=== PATIENT | female | born 1935 | race Caucasian/White ===

== ENCOUNTER 2020-04-08 17:46 | Inpatient (IN) | payer MEDICARE ==
[~2020-04-08] VITALS: Ht 170.2 cm; Wt 88.5 kg
--- NOTE | ~2020-04-08 | EMS ---
[place] [address] EMS Patient Care Report Name: ESTEE WEEMS I Room: [address] IN [facility]#: [id number] Admission: 04/08/20 Attend Phys: Pepper Nino MD Discharge: 04/10/20 Date of : 39 Report #: [id number] THIS REPORT FOR: //name// Report Transmitted: 04/13/2020 14:46 EMS Care Summary [facility]ident [id number] @ 04/08/2020 17:06 Incident Location [address] [place] [address] Patient ESTEE WEEMS Female, 84 Years 1935 Patient Address [address] [place] [address] Patient History Chronic Obstructive Pulmonary Disease (COPD),Breast Cancer,Hernia (Abdominal),Chronic Kidney Disease, Patient Allergies Penicillin allergy,Bactrim,Lisinopril,Cipro, Patient Medications Fluticasone, Aspirin, Proair, Atorvastatin, Omeprazole, Gabapentin, Diltiazem, Potassium, Chief Complaint stroke/cva Disposition Transported Lights/Reed Dispatch Reason Stroke/CVA Transported To [facility] Narrative Dispatch: Med 1 was dispatched to a home for a female with a possible CVA. Med 1 arrived on scene without incident. [address] [address] EMS Patient Care Report Name: ESTEE WEEMS I Room: [address] IN [facility]#: [id number] Admission: 04/08/20 Attend Phys: Pepper Nino MD Discharge: 04/10/20 Date of : 39 Report #: [id number] Chief Complaint: Med 1 entered the home and observed a woman sitting in a chair in the living room, smoking a cigarette. There were two other woman on scene, claiming to be the patient's daughters. Her daughter stated, " She's not acting normal for her. Something is wrong." History of present illness: Patient stated that she was sitting in the chair, watching T.V., when she began to have vision problems with her left eye. She stated that this happened around 1630 hours. Upon EMS arrival, patient stated that she was no longer experiencing the vision problems, but she just didn't feel right. Initial Assessment: Initial [place] Stroke Scale was completed on scene, while the patient was sitting in her recliner. She was able to answer all questions appropriately. Patient had equal side boss, no facial droop, and clear speech. Vitals were obtained. Skin was pink, warm and dry. Equal chest rise and fall. Patient ambulated to the cot with assistance. She appeared to lean more to her right and not lift her right foot up all the way as she walked. Secondary Assessment: Patient began to have right sided facial droop, as well as right sided weakness. She was unable to lift her right arm. She did have sensation in her right limbs. She was still able to answer all questions appropriately. Her speech did start sounding slurred. Reason for transport: Patient appeared to be having a stroke and needed to be transported emergency to the most appropriate stroke center. Treatments: Once in the ambulance, repeat vital signs were obtained and 12-lead were obtained. Two IV's were established as noted in flowchart tab. Patient was continuously monitored en route. Summary: Patient initially stated that she did not want to go. She got up to walk, and required assistance, which is not normal. Therefore, she stated that she would accept treatment and transport to the hospital. She was transferred to the [facility], covered with a blanket, and all seat belts were applied. Transport began. During transport, the patient's stroke symptoms seemed to be worsening; and her condition deteriorating. Stroke activation was made at 1740 to [facility] via radio. No other changes in patient condition were noted. Upon arrival to the hospital, the patient was unloaded, taken to the CT bed and transferred. Report was given to nursing staff, signatures were obtained, and patient care was transferred. [facility] returned to service. Initial Vitals @17:42P: 59,R: 20,GCS: 15,SpO2: 97, @17:47P: 62,R: 16,GCS: 15,SpO2: 96, [place] [address] EMS Patient Care Report Name: DANKESTEE I Room: [address] IN M.R.#: [id number] Admission: 04/08/20 Attend Phys: Pepper Nino MD Discharge: 04/10/20 Date of : 39 Report #: [id number] @17:29P: 73,R: 16,GCS: 15,SpO2: 97, @17:45P: 59,R: 18,BP: 159/71,GCS: 15,SpO2: 97,Revised Trauma: 12, @17:34P: 63,R: 20,BP: 170/122,GCS: 15,SpO2: 98,Revised Trauma: 12, @17:57P: 58,R: 18,BP: 158/74,GCS: 15,SpO2: 97,Revised Trauma: 12, @17:20P: 75,R: 16,BP: 160/110,GCS: 15,Glucose: 134,SpO2: 97,Revised Trauma: 12, Assessments @17:17MENTAL:Person Oriented,Time Oriented,Place Oriented,Event Oriented,SKIN:HEENT:Eyes: Left Pupil: 4-mm,Eyes: Right Pupil: 4-mm,Head/Face: No Abnormalities,Neck/Airway: No Abnormalities,LUNG SOUNDS:ABDOMEN:PELVIS//GI:No Abnormalities,EXTREMITIES:Left Arm: No Abnormalities,Right Arm: No Abnormalities,Left Leg: No Abnormalities,Right Leg: No Abnormalities,PULSE:Radial: 2+ Normal,NEURO:Abnormal Gait,Weakness Right-Sided,@18:30MENTAL:Person Oriented,Time Oriented,Place Oriented,Event Oriented,SKIN:HEENT:Eyes: Right Pupil: 5-mm,Head/Face: Facial Droop,Eyes: Left Pupil: 5-mm,Neck/Airway: No Abnormalities,LUNG SOUNDS:ABDOMEN:PELVIS//GI:No Abnormalities,EXTREMITIES:Right Arm: Weakness,Right Leg: Weakness,Left Arm: No Abnormalities,Left Leg: No Abnormalities,PULSE:NEURO:Slurred Speech,Abnormal Gait,Facial Droop,Weakness Right-Sided, Impression Stroke Procedures @17:19ALS AssessmentResponse: UnchangedSucceeded@17:40Stroke AlertResponse: Unchanged@17:35Saline Lock 10cc (18 ga) Site: Antecubital-RightResponse: UnchangedSucceeded@17:48Saline Lock 10cc (20 ga) Site: Antecubital-LeftResponse: UnchangedSucceeded@17:3012-Lead ECGResponse: UnchangedSucceeded@17:3412-Lead ECGResponse: UnchangedSucceeded@17:5712-Lead ECGResponse: UnchangedSucceeded@17:2912-Lead ECGResponse: UnchangedSucceeded Timeline 17:06,Call Received 17:06,Dispatched 17:08,En Route 17:09,On Scene 17:10,At Patient 17:19,ALS Assessment,Response: UnchangedSucceeded, 17:20,BP: 160/110 M,PULSE: 75,RR: 16 R,SPO2: 97 Ox,ETCO2: ,B,PAIN: ,GCS: 15, 17:28,Depart Scene 17:29,12-Lead ECG,Response: UnchangedSucceeded, 17:29,BP: / M,PULSE: 73,RR: 16 R,SPO2: 97 Ox,ETCO2: ,BG: ,PAIN: ,GCS: 15, 17:30,12-Lead ECG,Response: UnchangedSucceeded, 17:34,12-Lead ECG,Response: UnchangedSucceeded, 17:34,BP: 170/122 M,PULSE: 63,RR: 20 R,SPO2: 98 Ox,ETCO2: ,BG: ,PAIN: ,GCS: 15, [place] [address] EMS Patient Care Report Name: ESTEE WEEMS I Room: [address]#: [id number] Admission: 04/08/20 Attend Phys: Pepper Nino MD Discharge: 04/10/20 Date of : 39 Report #: [id number] 17:35,Saline Lock 10cc 18 ga Site: Antecubital-Right,Response: UnchangedSucceeded, 17:40,Stroke Alert,Response: Unchanged 17:42,BP: / M,PULSE: 59,RR: 20 R,SPO2: 97 Ox,ETCO2: ,BG: ,PAIN: ,GCS: 15, 17:45,BP: 159/71 M,PULSE: 59,RR: 18 R,SPO2: 97 Ox,ETCO2: ,BG: ,PAIN: ,GCS: 15, 17:47,BP: / M,PULSE: 62,RR: 16 R,SPO2: 96 Ox,ETCO2: ,BG: ,PAIN: ,GCS: 15, 17:48,Saline Lock 10cc 20 ga Site: Antecubital-Left,Response: UnchangedSucceeded, 17:57,12-Lead ECG,Response: UnchangedSucceeded, 17:57,BP: 158/74 M,PULSE: 58,RR: 18 R,SPO2: 97 Ox,ETCO2: ,BG: ,PAIN: ,GCS: 15, 17:59,At Destination 18:42,Call Closed Disclaimer v1.1 Copyright 2020 [employer] This EMS Care Summary contains data elements from the applicable legal record (which may be displayed differently). It is designed to provide pertinent information for the following purposes: continuity of care, clinical quality, and state data reporting. The complete legal record is available to ED staff and administrators of the receiving hospital in [facility] Patient Tracker. All data is provided "as is."
[2020-04-08 18:00] VITALS: BP 170/85
[2020-04-08 18:30] LABS: ABSOLUTE BASOPHILS 0.1 thou/uL (0.0-0.2); ABSOLUTE EOSINOPHILS 0.4 thou/uL (0.0-0.7); ABSOLUTE LYMPHOCYTES 2.1 thou/uL (0.8-5.3); ABSOLUTE MONOCYTES 0.5 thou/uL (0.0-1.2); ABSOLUTE NEUTROPHILS 2.8 thou/uL (1.6-8.1); BASOPHILS 0.9 %; EOSINOPHILS 7.4 %; HEMATOCRIT 41.3 % (37.0-47.0); HEMOGLOBIN 13.8 gm/dL (12.0-15.0); LYMPHOCYTES 36.1 %; MCH 31.6 pg (26.0-34.0); MCHC 33.5 g/dL (28.0-37.0); MCV 94.4 fL (80.0-100.0); NUCLEATED RBCS 0 /100WBC; PLATELET COUNT* 194 thou/uL (150-400); POLYS 47.6 %; RBC 4.38 mil/uL (4.20-5.00); RDW-CV 12.9 % (10.5-14.5)
[2020-04-08] MEDS ORDERED: SINGULAIR 10 MG10 M1 PO (18:34)
[2020-04-08] MEDS ORDERED: DILTIAZEM 24HR240 M1 PO (18:34)
[2020-04-08] MEDS ORDERED: LIPITOR40 MG PO (18:34)
[2020-04-08] MEDS ORDERED: ST. JOSEPH ASPI81 MG PO (18:35)
[2020-04-08] MEDS ORDERED: LIPITOR 40 MG T40 M1 PO (18:35)
[2020-04-08] MEDS ORDERED: VALSARTAN80 MG PO (18:35)
[2020-04-08] MEDS ORDERED: OMEPRAZOLE40 MG PO (18:35)
[2020-04-08] MEDS ORDERED: KLOR-CON M2020 MEQ PO (18:35)
[2020-04-08] MEDS ORDERED: GABAPENTIN100 MG PO (18:35)
[2020-04-08] MEDS ORDERED: ALBUTEROL2.5 MG/0.1 INH (18:36)
[2020-04-08] MEDS ORDERED: COLACE100 MG PO (18:36)
[2020-04-08 18:39] LABS: ALBUMIN 3.5 g/dL (3.4-5.0); CALCIUM 9.1 mg/dL (8.5-10.1); CREATININE 1.1 mg/dL (0.6-1.3); POTASSIUM 4.3 mmol/L (3.5-5.1); TOTAL BILIRUBIN 0.3 mg/dL (<0.1-1.0); TOTAL PROTEIN 6.7 g/dL (6.4-8.2)
[2020-04-08 18:50] LABS: APTT 24.8 Seconds (25.0-31.3); PROTIME 11.1 Seconds (9.20-11.50)
[2020-04-08 19:46] VITALS: BP 144/65
[2020-04-08 21:00] VITALS: BP 135/63
[2020-04-08 23:32] VITALS: BP 155/60
[2020-04-09 04:10] VITALS: BP 143/53
[2020-04-09 04:36] LABS: HEMATOCRIT 39.7 % (37.0-47.0); HEMOGLOBIN 13.4 gm/dL (12.0-15.0); MCH 31.5 pg (26.0-34.0); MCHC 33.6 g/dL (28.0-37.0); MCV 93.6 fL (80.0-100.0); MPV 7.7 fl. (7.2-11.1); RBC 4.25 mil/uL (4.20-5.00); RDW-CV 12.8 % (10.5-14.5); WBC 5.4 thou/uL (4.0-11.0)
[2020-04-09 05:11] LABS: CALCIUM 9.1 mg/dL (8.5-10.1); CREATININE 0.9 mg/dL (0.6-1.3); POTASSIUM 3.6 mmol/L (3.5-5.1)
[2020-04-09 05:28] LABS: CHOLESTEROL 116 mg/dL (<200); HDL CHOLESTEROL 43 mg/dL (>40); LDL CHOLESTEROL 51 mg/dL (<100); TC:HDL 2.7 Ratio (Not establshd); TRIGLYCERIDE 110 mg/dL (<150); VLDL 22 mg/dL (<40)
--- NOTE | 2020-04-09 05:38 | NUR ---
Admitted pt on unit at 2019. Pt get situated to room, tele in placed, tracing sinus [place]. Pt denies pain. NIH score 0. VS stable. Admission assessment as charted. Pt for neurology consult, pt for MRI. Pt for PT,OT, and SP eval. No acute event, pt use call light appropriately, safety precaution in place. Will continue POC.
[2020-04-09 05:54] LABS: SERUM ASSESSMENT Clear
[2020-04-09 07:20] VITALS: BP 161/73
--- NOTE | 2020-04-09 09:21 | NUR ---
CM SPOKE TO THE PT TO DISCUSS CM ASSESSMENT. PT A&O, NORMALLY INDEPENDENT WITH ADL'S, ACTIVE AND DRIVES. PT RESIDES AT HOME WITH HER 2 DTRS. PT USES 0 DME. PT HAS 0 HX OF HH OR SNF. CM WILL REMAIN AVAILABLE TO ASSIST AND FOLLOW NEEDED.
[2020-04-09] MEDS ORDERED: FLONASE 0.05%50 MCG NASAL (10:24)
[2020-04-09] MEDS ORDERED: PROAIR HFA8.5 GM INH (10:25)
[2020-04-09] MEDS ORDERED: INCRUSE ELLI62.5 MCG INH (10:31)
[2020-04-09] MEDS ORDERED: MUCINEX600 MG PO (10:32)
[2020-04-09] MEDS ORDERED: CALCIUM500 MG PO (10:33)
[2020-04-09] MEDS ORDERED: PAIN RELIEVER325 MG PO (10:39)
[2020-04-09] MEDS ORDERED: ZYRTEC10 M5 PO (10:40)
[2020-04-09] MEDS ORDERED: FISH OIL 1,0001 EAC9 PO (10:41)
[2020-04-09 12:41] VITALS: BP 155/66
--- NOTE | 2020-04-09 15:13 | NUR ---
AFTER CHART REVIEW AND DISCUSSION WITH RN, THERE APPEARED TO BE NO CURRENT SWALLOW CONCERNS THAT WARRANTED A SKILLED EVALUATION.
[2020-04-09 17:09] VITALS: BP 148/61
[2020-04-09 17:28] LABS: URINE BILIRUBIN NEGATIVE (Negative); URINE BLOOD TRACE (Negative); URINE CLARITY CLEAR; URINE COLOR YELLOW; URINE GLUCOSE-RANDOM NEGATIVE (Negative); URINE KETONES TRACE (Negative); URINE PROTEIN NEGATIVE (Negative); URINE UROBILINOGEN 0.2 E.U./dl (0.2-1.0)
[2020-04-09 17:29] LABS: URINE LEUKOCYTES-REFLEX 2+ (Negative); URINE NITRITE-REFLEX POSITIVE (Negative)
[2020-04-09 17:32] LABS: SQUAMOUS 4-10 Moderate /LPF (0-3)
[2020-04-09 17:33] LABS: BACTERIA-REFLEX >30 Many /HPF (None Seen); URINE RBC 0-2 Rare /HPF (0-2); WBC CLUMPS Few (None Seen)
[2020-04-09 17:34] LABS: CRYSTALS None Seen /LPF (None Seen); HYALINE CASTS 0-3 Few /LPF (None Seen); MUCUS 0-3 Light strn/LPF (None Seen)
[2020-04-09 20:35] VITALS: BP 128/72
[2020-04-09 23:36] VITALS: BP 134/61
--- NOTE | 2020-04-10 03:32 | NUR ---
ASSUMED CARE OF PT AT 1900. PT IS ALERT AND ORIENTED. VSS. NO COMPLAINTS OF PAIN. PT ISIN SINUS RYTHM ON THE TELEMETRY. PT IS RESTING COMFORTABLY IN BED. RESPIRATIONS ARE EVEN AND NONLABORED. WILL CONTINUE TO MONITOR PT.
[2020-04-10 04:18] LABS: HEMATOCRIT 40.9 % (37.0-47.0); HEMOGLOBIN 13.7 gm/dL (12.0-15.0); MCH 31.2 pg (26.0-34.0); MCHC 33.5 g/dL (28.0-37.0); MCV 93.1 fL (80.0-100.0); MPV 7.9 fl. (7.2-11.1); RBC 4.39 mil/uL (4.20-5.00); RDW-CV 12.7 % (10.5-14.5); WBC 6.2 thou/uL (4.0-11.0)
[2020-04-10 04:24] VITALS: BP 169/76
[2020-04-10 04:29] LABS: CALCIUM 9.9 mg/dL (8.5-10.1)
[2020-04-10 05:36] LABS: GLYCOHEMOGLOBIN (HGB A1C) 5.6 % (4.8-5.6)
[2020-04-10 07:30] VITALS: BP 152/60
[2020-04-10] MEDS ORDERED: CLOPIDOGREL75 MG PO (10:08)
--- NOTE | 2020-04-10 11:41 | CON ---
[address] [address] CONSULTATION Name: ESTEE WEEMS I Room: [address] IN .R.#: [id number] Admission: 04/08/20 Attend Phys: Pepper Nino MD Discharge: Date of : 39 Report #: [id number] THIS REPORT FOR: cc: FAM - Family physician unknown FAM - Family physician unknown ~ Cesia Ramos DO NEUROLOGY CONSULTATION HISTORY OF PRESENT ILLNESS: The patient is an 84-year-old female who came to the Emergency Room last night, stating that she had visual changes beginning at approximately 4:30 p.m. She thought she had difficulty seeing off to the right while watching TV. By the time she came to the Emergency Room, the symptoms were gone. She had an NIH of 0. Since she has been in the hospital, however, she again when speaking with Dr. Nino mentioned that she had difficulty looking off to the right side. The initial CT scan of the head was unremarkable from yesterday. The patient has now had the MRI of the head, the results of which are pending. The patient feels that she has some right-sided weakness. She continues to express concern over her vision when she looks off to the right. The patient smokes. She does take aspirin 81 mg at bedtime. She is concerned because she has not had any of her typical medications. PAST MEDICAL HISTORY: Asthma, hypertension, hyperlipidemia, gastroesophageal reflux. PAST SURGICAL HISTORY: Negative. MEDICATIONS: At home, Singulair daily, diltiazem 240 mg daily, Lipitor 40 mg daily, omeprazole daily, potassium 20 mEq daily, gabapentin 100 mg t.i.d., valsartan 80 mg daily, aspirin 81 mg daily, Colace 100 mg b.i.d., albuterol p.r.n. ALLERGIES: PENICILLIN, LISINOPRIL, CHLORTHALIDONE, CLINDAMYCIN. VITAL SIGNS: Temperature 36.7, pulse rate 60, respiratory rate 16, blood pressure 161/73, bedside pulse oximetry 92% on 2 liters. LABORATORY DATA: Hematology: White blood cell count 5.4, hemoglobin 13.4, hematocrit 39.7, MCV 93.6, platelet count 190,000. Chemistry: Sodium 140, potassium 3.6, chloride 107, carbon dioxide 23, BUN 12, creatinine 0.9, GFR 60, glucose 83. Hemoglobin A1c pending. Calcium 8.1. Liver functions normal. Cholesterol profile: Triglycerides 110. Cholesterol 116, LDL 51, [place] 43. [place] [address] CONSULTATION Name: ESTEE WEEMS I Room: [address]#: [id number] Admission: 04/08/20 Attend Phys: Pepper Nino MD Discharge: Date of : 39 Report #: [id number] 2.866. NEURO EXAM: Cranial nerves 2-12 are grossly intact with gross confrontational cha. There was no evidence of either a quadrantanopia or hemianopia. Motor exam demonstrated a mild right hemiparesis. Reflexes, however, were symmetric and plantar responses were mute bilaterally. Coordination demonstrated no evidence of dysmetria. It was performed more slowly with the right upper extremity. Gait was not tested due to safety reasons. IMPRESSION: This patient does have right-sided weakness. The MRI results are pending. She may have had a left hemispheric stroke. She does have risk factors, although they seem relatively well controlled, but these risk factors include hypertension, hyperlipidemia and cigarette use. I did recommend to the patient that she stop smoking. If she needs help, she can try Nicotine Anonymous, which is now conducting sessions online. Perhaps her daughter could help her with that. At this point, clopidogrel 75 mg daily will be added to her regimen. She should stay on clopidogrel for 3-4 weeks and then clopidogrel should be discontinued. As I left the room, the patient was about to get a carotid ultrasound. An echocardiogram has been ordered. Once the MRI comes back, then the workup should be complete. I thank you for your kind referral of the patient. <ELECTRONICALLY SIGNED> By: Cesia Ramos DO 04/10/20 1141 [id number] Ramos DO /nt
[2020-04-10 12:00] VITALS: BP 140/72
[2020-04-10 15:17] VITALS: BP 140/72
--- NOTE | 2020-04-11 11:03 | EKG ---
[place] [address] ELECTROCARDIOGRAM REPORT Name: ESTEE WEEMS I Room: [address] IN [facility].#: [id number] Admission: 04/08/20 Attend Phys: Pepper Nino MD Discharge: 04/10/20 Date of : 39 Date of Service: 04/08/20 1827 Report #: [id number] THIS REPORT FOR: //name// [facility] ED Test Date: 2020-04-08 Test Time: 18:27:22 Pat Name: ESTEE WEEMS Department: Room: [facility] Gender: F Sales And Marketing Representative: CCD : 1935 Requested By: Cristofer Valero Order Number: [id number] MD: Trell Jung Measurements Intervals [place] Rate: 52 P: 76 CA: 214 QRS: -32 QRSD: 105 T: 74 QT: 445 QTc: 414 Interpretive Statements Sinus bradycardia Borderline prolonged CA interval Left axis deviation septal infarct, age indeterminate No previous ECG available for comparison Electronically Signed On 04-11-2020 11:03:03 ENVIRONMENTAL OFFICER by Trell Jung [email or web address] <ELECTRONICALLY SIGNED> By: Trell Jung MD, FAC 04/11/20 1103 1827 1827 Trell Jung MD, [facility] /EPI
== END 2020-04-10 15:52 | disposition home or self-care (01) | DRG 69 ==
LOC: M.ERS 17:46 → M.TBA-ER 18:24 → M.2W 18:24
PROVIDERS: Family Medicine; Psychiatry & Neurology Neurology; ADMIT Family Medicine; ATTEND Family Medicine
DX: G45.9 Transient cerebral ischemic attack, unspecified (principal); G81.91 Hemiplegia, unspecified affecting right dominant side; N39.0 Urinary tract infection, site not specified; E78.5 Hyperlipidemia, unspecified; I10 Essential (primary) hypertension; K21.9 Gastro-esophageal reflux disease without esophagitis; F17.210 Nicotine dependence, cigarettes, uncomplicated; Z20.822 Contact with and (suspected) exposure to COVID-19; Z79.899 Other long term (current) drug therapy; Z79.82 Long term (current) use of aspirin; Z88.1 Allergy status to other antibiotic agents; Z88.0 Allergy status to penicillin; Z88.8 Allergy status to other drugs, medicaments and biological substances